=== PATIENT | male | born 1985 | race Caucasian/White ===

== ENCOUNTER 2016-11-12 18:50 | Emergency (ER) | payer SELFPAY | END 2016-11-12 20:45 | disposition home or self-care (01) | LOC: D.ER 18:50 | DX: L50.9 Urticaria, unspecified (principal) ==

== ENCOUNTER 2018-02-07 20:08 | Emergency (ER) | payer OTHER | END 2018-02-07 21:36 | disposition home or self-care (01) | LOC: D.ER 20:08 | DX: N48.22 Cellulitis of corpus cavernosum and penis (principal); B86 Scabies ==